=== PATIENT | female | born 1940 | race Caucasian/White ===

== ENCOUNTER → 2017-02-14 | Outpatient (CLI) | payer MEDICARE, BC | END | disposition home or self-care (01) | LOC: PCVCIMAG 09:00 | PROVIDERS: ATTEND Internal Medicine Cardiovascular Disease | DX: I08.3 Combined rheumatic disorders of mitral, aortic and tricuspid valves (principal); I10 Essential (primary) hypertension; E78.00 Pure hypercholesterolemia, unspecified | CPT/HCPCS: 80061; 93005; 93306; G0463 ==

== ENCOUNTER → 2018-03-27 | Outpatient (CLI) | payer MEDICARE, BC | END | disposition home or self-care (01) | LOC: PCVCIMAG 13:49 | DX: I10 Essential (primary) hypertension (principal); I08.1 Rheumatic disorders of both mitral and tricuspid valves | CPT/HCPCS: 93325; 93351 ==

== ENCOUNTER → 2019-01-15 | Outpatient (CLI) | payer MEDICARE, BC ==
--- NOTE | 2019-01-15 16:00 | PCVCIMAG ---
APPROVED REPORT Study performed: 01/15/2019 10:19:18 EXAM: Comprehensive 2D, Doppler, and color-flow Echocardiogram Patient Location: Echo lab Status: routine BSA: 1.60 HR: 67 bpmBP: 132/68 mmHg Rhythm: NSR Other Information Study Quality: Good Risk Factors: Cardiac Risk Factors: HTN, Hyperlipidemia Indications Mitral Valve Prolapse Mitral Regurgitation 2D Dimensions IVSd: 9.80 (7-11mm)LVOT Diam: 19.00 (18-24mm) LVDd: 51.12 mm PWd: 9.51 (7-11mm)Ascending Ao: 30.98 (22-36mm) LVDs: 32.72 (25-40mm) Left Atrium: 26.13 (27-40mm) Aortic Root: 29.56 mm LV Single Plane 4CH: 61.48 % LV Single Plane 2CH: 66.38 % Biplane EF: 63.6 % Volumes Left Atrial Volume (Systole) Single Plane 4CH: 56.14 mLSingle Plane 2CH: 52.56 mL LA ESV Index: 36.00 mL/m2 Aortic Valve AoV Peak Stefano.: 1.27 m/s AO Peak Gr.: 6.43 mmHgLVOT Max P.73 mmHg LVOT Max V: 0.97 m/s JOHN Vmax: 2.14 cm2 AI Vmax: 3.20 m/s AI Cherry: 1.61 m/s2 AI PHT: 577.86 ms Mitral Valve E/A Ratio: 1.0 MV Decel. Time: 311.89 ms MV E Max Stefano.: 0.69 m/s MV A Stefano.: 0.72 m/s IVRT: 62.28 ms Pulmonary Valve PV Peak Stefano.: 0.84 m/sPV Peak Gr.: 2.84 mmHg Pulmonary Vein P Vein S: 0.46 m/sP Vein A: 0.29 m/s P Vein D: 0.38 m/sP Vein A Dur.: 76.1 msec P Vein S/D Ratio: 1.21 Tricuspid Valve TR Peak Stefano.: 2.38 m/sRAP Estimate: 7.00 mmHg TR Peak Gr.: 22.74 mmHg PA Pressure: 30.00 mmHg Left Ventricle The left ventricle is normal size. There is normal LV segmental wall motion. There is normal left ventricular wall thickness. Left ventricular systolic function is normal. The left ventricular ejection fraction is within the normal range. LVEF is 60-65%. Moderate diastolic dysfunction is present (pseudonormal filling). Right Ventricle The right ventricle is normal size. The right ventricular systolic function is normal. Atria Left atrium is mildly dilated. Right atrium is mildly dilated. Aortic Valve The aortic valve is normal in structure. Mild aortic regurgitation. There is no aortic valvular stenosis. Mitral Valve The mitral valve is normal in structure. Moderate to severe mitral regurgitation. No evidence of mitral valve stenosis. There is moderate mitral valve prolapse. Tricuspid Valve The tricuspid valve is normal in structure. Mild tricuspid regurgitation. Pulmonary artery pressure is 30 mmHg. Pulmonic Valve The pulmonary valve is normal in structure. Trace pulmonic regurgitation. Great Vessels The aortic root is normal in size. IVC is normal in size and collapses >50% with inspiration. Pericardium There is no pericardial effusion. <Conclusion> The left ventricle is normal size. LVEF is 60-65%. Moderate diastolic dysfunction is present (pseudonormal filling). The right ventricle is normal size. Left atrium is mildly dilated. Right atrium is mildly dilated. Mild aortic regurgitation. Moderate to severe mitral regurgitation. Mild tricuspid regurgitation. Pulmonary artery pressure is 30 mmHg. There is moderate mitral valve prolapse. The aortic root is normal in size. There is no pericardial effusion.
== END | disposition home or self-care (01) ==
LOC: PCVCIMAG 09:59
PROVIDERS: ATTEND Internal Medicine Cardiovascular Disease
DX: I08.3 Combined rheumatic disorders of mitral, aortic and tricuspid valves (principal); R01.1 Cardiac murmur, unspecified; I10 Essential (primary) hypertension; E78.00 Pure hypercholesterolemia, unspecified; E03.9 Hypothyroidism, unspecified; Z87.891 Personal history of nicotine dependence
CPT/HCPCS: 36415; 80061; 93005; 93306; G0463

== ENCOUNTER → 2019-08-30 | Outpatient (CLI) | payer MEDICARE, BC ==
--- NOTE | 2019-08-30 11:01 | PCVCIMAG ---
APPROVED REPORT Study performed: 08/30/2019 09:23:24 EXAM: Limited 2D and color flow Echocardiogram Patient Location: Echo lab Status: routine BSA: 1.80 HR: 62 bpmBP: 132/60 mmHg Rhythm: NSR Other Information Study Quality: Adequate Indications Mitral Valve Prolapse mod-severe mitral regurgitation 2D Dimensions LV Single Plane 4CH: 53.67 % LV Single Plane 2CH: 50.21 % Biplane EF: 51.7 % Tricuspid Valve TR Peak Stefano.: 2.40 m/s TR Peak Gr.: 23.02 mmHg Left Ventricle The left ventricular systolic function is normal. The left ventricular ejection fraction is within the normal range. LVEF is -55%. This study is not technically sufficient to allow evaluation of the LV diastolic function. Aortic Valve The aortic valve is normal in structure. Mild aortic regurgitation. There is no aortic valvular stenosis. Mitral Valve Moderate mitral valve prolapse. Moderate to severe mitral regurgitation No evidence of mitral valve stenosis. Tricuspid Valve Mild tricuspid regurgitation with PAP of 30 mmHg. Great Vessels The aortic root is normal in size. IVC is normal in size and collapses >50% with inspiration. Pericardium There is no pericardial effusion. There is no pleural effusion. <Conclusion> The left ventricular systolic function is normal. The left ventricular ejection fraction is within the normal range. LVEF is -55%. Mild aortic regurgitation. Moderate mitral valve prolapse. Moderate to severe mitral regurgitation Mild tricuspid regurgitation with PAP of 30 mmHg. The aortic root is normal in size. There is no pericardial effusion.
--- NOTE | 2019-09-03 16:27 | PCVCIMAG ---
APPROVED REPORT Patient Location: Echo lab Room #: Stress Nurse: Elena Young RN Treadmill Stress Test Indications- Mitral valve prolaspe, mod-severe mitral regurgitation, dyspnea, functional capacity The patient exercised according to the SK[facility] protocol for 7:07 mins; achieving a work level of 10.1 METS. The resting heart rate of 74 bpm indira to a maximum heart rate of 136 bpm. This value represent 96% of the maximal, age-predicted heart rate. The resting blood pressure of 132/60 mmHg, indira to a maximum blood pressure of 160/68 mmHg. The exercise test was stopped due to fatigue, dyspnea and leg fatigue. Conclusion #1 patient associated fatigue and shortness of breath no production of chest pain or angina #2 no diagnostic EKG changes consistent with ischemia no significant ectopy. #3 fair exercise tolerance showing appropriate hemodynamic response and fair functional capacity. Recommendations and plan: Patient exhibiting good functional capacity with moderately severe mitral regurgitation. No change in exercise tolerance. No ischemic changes.
== END | disposition home or self-care (01) ==
LOC: PCVCIMAG 09:12
PROVIDERS: ATTEND Internal Medicine Cardiovascular Disease
DX: I08.3 Combined rheumatic disorders of mitral, aortic and tricuspid valves (principal); I10 Essential (primary) hypertension; E78.5 Hyperlipidemia, unspecified; E78.00 Pure hypercholesterolemia, unspecified; E03.9 Hypothyroidism, unspecified; Z82.49 Family history of ischemic heart disease and other diseases of the circulatory system; Z87.891 Personal history of nicotine dependence; Z79.899 Other long term (current) drug therapy; Z88.1 Allergy status to other antibiotic agents
CPT/HCPCS: 36415; 80061; 93017; 93308; G0463